=== PATIENT | male | born 1950 | race Two or more races ===

== ENCOUNTER 2020-02-17 13:08 | Outpatient (REF) | payer OTHER, SELFPAY ==
[2020-02-18 11:24] LABS: COVID-19 RT-PCR UVMMC Result Negative (Negative)
== END 2020-02-17 13:28 ==
LOC: NCHCN 13:08
PROVIDERS: PCP Physician Assistant; Visit Provider Physician Assistant
DX: J06.9 Acute upper respiratory infection, unspecified (principal)
CPT/HCPCS: U0003

== ENCOUNTER 2024-02-23 18:08 | Outpatient (REF) | payer OTHER, SELFPAY ==
--- NOTE | 2024-02-23 11:20 | SKI_PTH ---
PATIENT: Amanuel Zimmer LOC: [facility] U#:[id number] AGE/SX: 73/M ROOM: RE02/23/[address]: Oumar Huang : 1950 BED: DIS: 02/23/2024 SPEC #: [id number] RECD: 02/26/24 13:19 STATUS: CLEOPATRA KOWALSKI #: [id number] ALISON: 02/23/24 11:[address]: Oumar Huang DEPT: Surgical Specimen RECD BY: Mary Sanchez Tissues: 1 - SKIN BIOPSY(SHAVE/PUNCH) Procedures: SKIN LEVEL 4 Comments: [id number]
[2024-02-23 14:50] LABS: HCT 50.2 % (40.0-50.0); HGB 16.6 g/dL (13.5-17.5); MCH 31.3 pg (27.0-33.0); MCHC 33.1 % (32.0-36.0); MCV 95 fL (80-95); Platelet Count 297 10^3/uL (130-400); RBC 5.31 10^6/uL (4.36-5.78); RDW 14.1 % (11.8-14.1); WBC 7.92 10^3/uL (4.4-10.8)
[2024-02-23 15:00] LABS: ALT 22 U/L (16-63); AST 19 U/L (15-37); Albumin 3.7 g/dL (3.4-5.0); Alkaline Phosphatase 66 U/L (46-116); Anion Gap 7.9 mmol/L (3-11); BUN 10 mg/dL (7-18); Bilirubin, Total 1.12 mg/dL (0.2-1.0); CO2 29.1 mmol/L (21.0-32.0); Calcium 9.1 mg/dL (8.5-10.1); Calculated LDL 83 mg/dL (<100); Chloride 105 mmol/L (98-107); Cholesterol 139 mg/dL (<200); Estimated GFR 78.98 (mL/min/1.73m2); Glucose 118 mg/dL (74-106); HDL Cholesterol 36 mg/dL (40-60); Potassium 4.3 mmol/L (3.5-5.1); Sodium 142 mmol/L (136-145); Total Protein 7.3 g/dL (6.4-8.2); Triglyceride 101 mg/dL (<150)
[2024-02-23 15:18] LABS: Hemoglobin A1C 6.2 % (<5.7)
== END 2024-02-23 18:09 | disposition home or self-care (01) ==
LOC: NCHCN 18:08
PROVIDERS: PCP Physician Assistant; Visit Provider Physician Assistant
DX: K21.9 Gastro-esophageal reflux disease without esophagitis; E11.9 Type 2 diabetes mellitus without complications; L82.1 Other seborrheic keratosis
CPT/HCPCS: 80053; 80061; 85027; 83036; 88305

== ENCOUNTER 2024-09-25 16:04 | Outpatient (REF) | payer OTHER, SELFPAY ==
[2024-09-25 19:17] LABS: HCT 47.3 % (40.0-50.0); HGB 15.6 g/dL (13.5-17.5); MCH 31.5 pg (27.0-33.0); MCV 95 fL (80-95); MPV 10.1 fL (8.0-11.0); Platelet Count 389 10^3/uL (130-400); RBC 4.96 10^6/uL (4.36-5.78); RDW 13.8 % (11.8-14.1); RDW-SD 48.2 fL
[2024-09-25 19:40] LABS: ALT 39 U/L (16-63); AST 26 U/L (15-37); Albumin 3.3 g/dL (3.4-5.0); Alkaline Phosphatase 66 U/L (46-116); Anion Gap 6.3 mmol/L (3-11); BUN 31 mg/dL (7-18); Bilirubin, Total 1.25 mg/dL (0.2-1.0); C-Reactive Protein 1.27 mg/dL (<or=0.5); CO2 30.7 mmol/L (21.0-32.0); CREATININE 1.3 mg/dL (0.70-1.30); Calcium 9.3 mg/dL (8.5-10.1); Chloride 107 mmol/L (98-107); Estimated GFR 57.29 (mL/min/1.73m2); Glucose 122 mg/dL (74-106); NT-proBNP 1064 pg/mL (<300); Potassium 4.6 mmol/L (3.5-5.1); Sodium 144 mmol/L (136-145); Total Protein 7.1 g/dL (6.4-8.2)
== END 2024-09-25 16:05 | disposition home or self-care (01) ==
LOC: NCHCN 16:04
PROVIDERS: PCP Physician Assistant; Visit Provider Physician Assistant
DX: R50.9 Fever, unspecified (principal); I50.9 Heart failure, unspecified
CPT/HCPCS: 80053; 85027; 83880; 86140

== ENCOUNTER 2024-10-09 16:12 | Outpatient (REF) | payer OTHER, SELFPAY ==
[2024-10-09 19:43] LABS: HCT 47.3 % (40.0-50.0); HGB 15.5 g/dL (13.5-17.5); MCH 31.1 pg (27.0-33.0); MCHC 32.8 % (32.0-36.0); MCV 95 fL (80-95); MPV 10.3 fL (8.0-11.0); Platelet Count 414 10^3/uL (130-400); RBC 4.99 10^6/uL (4.36-5.78); RDW 14.2 % (11.8-14.1); RDW-SD 49.1 fL; WBC 8.07 10^3/uL (4.4-10.8)
[2024-10-09 20:01] LABS: NT-proBNP 1308 pg/mL (<300)
== END 2024-10-09 16:13 | disposition home or self-care (01) ==
LOC: NCHCN 16:12
PROVIDERS: PCP Physician Assistant; Visit Provider Physician Assistant
DX: I42.2 Other hypertrophic cardiomyopathy (principal); E11.9 Type 2 diabetes mellitus without complications
CPT/HCPCS: 85027; 83036; 83880

== ENCOUNTER 2024-11-13 16:32 | Outpatient (REF) | payer OTHER, SELFPAY ==
[2024-11-13 20:16] LABS: NT-proBNP 2665 pg/mL (<300)
== END 2024-11-13 16:33 | disposition home or self-care (01) ==
LOC: NCHCN 16:32
PROVIDERS: PCP Physician Assistant; Visit Provider Physician Assistant
DX: I42.2 Other hypertrophic cardiomyopathy (principal)
CPT/HCPCS: 83880

== ENCOUNTER 2025-01-01 08:09 | Outpatient (CLI) | payer OTHER, SELFPAY ==
--- NOTE | 2025-01-01 08:00 | RT.EKG_ITS ---
APPROVED REPORT Exam: Resting ECG Reason for Exam: afib Patient Location: O HR:77 bpm ECG Measurements Heart Rate 77 AXIS LA [id number] P [id number] QRSd 136 QRS 96 QT 403 T 177 QTc 457 Conclusion Atrial fibrillation.. Right bundle branch block...QRSd>120, terminal axis(90,270) Diffuse nondiagnostic ST-T abnormalities Baseline wander in lead(s) I,V1,V3,V4,V5
[2025-01-01 20:53] LABS: Abs Immature Grans 0.05 10^3/uL (0.0-0.06); Absolute Basophil Count 0.08 10^3/uL (0.0-0.2); Absolute Eosinophil Count 0.03 10^3/uL (0.0-0.7); Absolute Monocyte Count 0.96 10^3/uL (0.1-0.8); Basophils % 0.6 %; Eosinophils % 0.2 %; HCT 54.4 % (40.0-50.0); HGB 17.7 g/dL (13.5-17.5); Immature Grans % 0.4 %; Lymphocytes % 13.5 %; MCH 30.8 pg (27.0-33.0); MCHC 32.5 % (32.0-36.0); MCV 95 fL (80-95); MPV 10.8 fL (8.0-11.0); Monocytes % 7.2 %; Neutrophils % 78.1 %; Platelet Count 357 10^3/uL (130-400); RBC 5.74 10^6/uL (4.36-5.78); RDW 14.6 % (11.8-14.1); RDW-SD 50.8 fL; WBC 13.38 10^3/uL (4.4-10.8)
[2025-01-01 20:54] LABS: Absolute Lymphocyte Count 1.81 10^3/uL (1.2-3.4); Absolute Neutrophil Count 10.45 10^3/uL (1.2-6.7)
[2025-01-01 21:09] LABS: Uric Acid 4.7 mg/dL (3.5-7.2)
== END 2025-01-01 08:10 | disposition home or self-care (01) ==
LOC: DI.CARD 08:10 → NCHCN 20:35
PROVIDERS: Registered Nurse; PCP Family Medicine; Visit Provider Family Medicine
DX: I47.20 Ventricular tachycardia, unspecified (principal); I48.91 Unspecified atrial fibrillation
CPT/HCPCS: 84550; 85025

== ENCOUNTER 2025-02-13 18:44 | Outpatient (REF) | payer OTHER, SELFPAY ==
--- NOTE | 2025-02-13 16:15 | SKI_PTH ---
PATIENT: Amanuel Zimmer [facility][id number] AGE/SX: 74/M ROOM: RE02/13/[address]: Oumar Huang : 1950 BED: DIS: 02/13/2025 SPEC #: [id number] RECD: 02/13/25 18:54 STATUS: CLEOPATRA REPrince #: [id number] ALISON: 02/13/25 16:[address]: Oumar Huang DEPT: Surgical Specimen RECD BY: Mary Sanchez Tissues: 1 - SKIN BIOPSY(SHAVE/PUNCH) Procedures: SKIN LEVEL 4 Comments: [id number]
== END 2025-02-13 18:45 | disposition home or self-care (01) ==
LOC: NCHCN 18:44
PROVIDERS: PCP Physician Assistant; Visit Provider Physician Assistant
DX: L81.9 Disorder of pigmentation, unspecified (principal); C44.319 Basal cell carcinoma of skin of other parts of face
CPT/HCPCS: 88305

== ENCOUNTER 2025-06-17 21:33 | Outpatient (REF) | payer OTHER, SELFPAY ==
[2025-06-17 19:29] LABS: HCT 55.4 % (40.0-50.0); HGB 18.7 g/dL (13.5-17.5); MCH 31.6 pg (27.0-33.0); MCHC 33.8 % (32.0-36.0); MCV 94 fL (80-95); MPV 11.0 fL (8.0-11.0); Platelet Count 299 10^3/uL (130-400); RBC 5.92 10^6/uL (4.36-5.78); RDW 14.3 % (11.8-14.1); RDW-SD 49.9 fL; WBC 8.10 10^3/uL (4.4-10.8)
[2025-06-17 20:11] LABS: Anion Gap 9.6 mmol/L (3-11); BUN 14 mg/dL (7-18); CO2 28.4 mmol/L (21.0-32.0); Calcium 9.5 mg/dL (8.5-10.1); Chloride 104 mmol/L (98-107); Estimated GFR 70.01 (mL/min/1.73m2); Glucose 96 mg/dL (74-106); NT-proBNP 1403 pg/mL (<300); Potassium 4.6 mmol/L (3.5-5.1); Sodium 142 mmol/L (136-145)
[2025-06-17 20:44] LABS: Hemoglobin A1C 6.0 % (<5.7)
== END 2025-06-17 21:34 | disposition home or self-care (01) ==
LOC: NCHCN 21:33
PROVIDERS: PCP Physician Assistant; Visit Provider Physician Assistant
DX: I10 Essential (primary) hypertension (principal); E11.9 Type 2 diabetes mellitus without complications; I48.91 Unspecified atrial fibrillation; I42.2 Other hypertrophic cardiomyopathy
CPT/HCPCS: 80048; 85027; 83036; 83880

== ENCOUNTER → 2025-07-09 02:12 | Outpatient (CLI) | payer OTHER, SELFPAY ==
--- NOTE | 2025-07-09 13:30 | DI.US_ITS ---
APPROVED REPORT EXAM: Comprehensive 2D, Doppler, and color-flow Echocardiogram Patient Location: Out-Patient Environmental Advisor: Colleen Esposito RDCS (AE) Indications: HOCM, Hypertrophic Cardiomyopathy Other Information Study Quality: Adequate Conclusion Normal left ventricular chamber size. Mild asymmetric septal hypertrophy. EF is 45 to 50%. There are no segmental wall motion abnormalities. Patient is in atrial fibrillation with [id number] variation Normal right ventricular size and function Severely dilated left atrium. Moderately dilated right atrium Device lead noted in the right heart There are no structural valvular abnormalities Trace aortic regurgitation. Mild mitral and tricuspid regurgitation Ascending aorta measures 3.72 cm Wall motion Left Ventricle The left ventricle is normal size. Left ventricular systolic function is mildly decreased. Echo findings are consistent with hypertrophic cardiomyopathy. There is global hypokinesis of the left ventricle. There is no ventricular septal defect visualized. LVEF is 45-50%. Right Ventricle Right ventricle is grossly normal in size. The right ventricular systolic function is normal. Device lead is present in the right ventricle. Atria Left atrium is severely dilated. Right atrium is moderately dilated. The interatrial septum is intact with no evidence for an atrial septal defect. Aortic Valve The aortic valve is normal in structure. Aortic valve is trileaflet. There is no aortic valvular stenosis. Trace aortic regurgitation. Mitral Valve The mitral valve is normal in structure. No evidence of mitral valve stenosis. Mild mitral regurgitation. Tricuspid Valve The tricuspid valve is normal in structure. There is no tricuspid valve stenosis. Mild tricuspid regurgitation. The RVSP is 39.6_ mmHg. Pulmonic Valve The pulmonary valve is normal in structure. There is no pulmonic valvular stenosis. Trace pulmonic regurgitation. Great Vessels The aortic root is normal in size. The ascending aorta is mildly dilated. Aortic arch is normal in caliber. The IVC collapses <50% with inspiration. Pericardium There is no pericardial effusion. 2D Dimensions IVSD d PLAX 1.50 cm M: 0.6-1.2 Ao Root d 3.18 cm M: 3.1 - 3.7 LVPW d PLAX 1.21 cm M: 0.6 - 1.2 Ao Asc Diam d 3.72 cm M: 2.6 - 3.4 LVID d PLAX 5.22 cm M: 4.2 - 5.8 LVDs 4.03 cm M: 2.5 - 4.0 LV EF Teichholz 45.6 % FS 22.85 % LV EDV (Teich) 130.5 mL LV ESV (Teich) 71.1 mL M-Mode TAPSE 1.35 cm (M/F) >1.7 Auto EF LV EDV A4C 151.3 mL LV EDV A2C 153.7 mL LV EDV BP 153.4 mL LV ESV A4C 90.3 mL LV ESV A2C 93.0 mL LV ESV BP 91.1 mL LVEF(%) A4C 40.3 % LVEF(%) A2C 39.5 % LVEF(%) BP 40.6 % LV SV A4C 61.0 ml LV SV A2C 60.8 ml LV SV BP 62.3 ml LV CO A4C 3.4 L/min LV CO A2C 3.2 L/min LV CO BP 3.3 L/min HR A4C 55.30 BPM HR A2C 52.25 BPM LV EDV Index (BP) LA Volume LA Length A4C 6.0 cm LA Length A2C 6.6 cm LA Area A4C s 28.70 cm2 LA Area A2C s 29.55 cm2 LA Vol A4C A-L 117.06 mL LA Vol A2C A-L 111.47 mL LA Vol Biplane A-L 120.5 mL LA Vol/BSA A4C A-L LA Vol/BSA A2C A-L LA Vol/BSA BP A-L 55.8 mL/m2 LA Vol A4C MOD 107.0 mL LA Vol A2C MOD 104.7 mL LA Vol BP MOD 111.4 mL RA Volume RA Area A4C 23.8 cm2 RA ESV A4C (A-L) 77.8mL RA Vol/BSA A4C A-L RA Length A4C 6.2 cm RA ESV A4C (MOD) 74.2mL LV Diastology MV E' lateral 0.093 (>0.1 m/s) MV E Vmax 0.63 (0.4-1.3 m/s) MV E/E' LAT 6.75 (<14) Aortic Valve AoV Vmax 0.85 m/s LVOT Vmax 0.74 m/s AoV Peak Grad 2.9 mmHg LVOT Peak Grad 2.2 mmHg AoV Area (Vmax) 2.70 cm2 LVOT VTI 0.177 m AoV VTI 0.193 m LVOT Mean Grad 1.2 mmHg AoV Mean Len. 0.65 m/s LVOT SV 54.97 mL AoV Mean Grad 1.8 mmHg LVOT Diam s 1.95 cm AoV Area (VTI) 2.86 cm2 AV Regurg Peak Gr. 2.90 mmHg Velocity Ratio 0.87 Mitral Valve MV DT 218 (160-240 msec) MV Vmax TIPS 0.70 m/s MV Mean Grad 0.3 (<2mmHg) MV VTI 0.190 m Pulmonary Valve PV Vmax 0.95 (0.5-1.5 m/s) RVOT Vmax 0.79 m/s PV Peak Grad 3.6 mmHg RVOT Peak Gr. 2.5 mmHg PV Mean Len 0.60 m/s RVOT VTI 0.152 m PV Mean Grad 1.7 mmHg RVOT Mean Gr. 1.2 mmHg Tricuspid Valve RA Pressure 3.00 mmHg TR Vmax 3.02 m/s TV S' 0.10 m/s TR Peak Grad 36.5 mmHg RVSP (TR) 39.6 mmHg
== END ==
LOC: DI 02:12
PROVIDERS: PCP Physician Assistant; Visit Provider Registered Nurse
DX: I42.2 Other hypertrophic cardiomyopathy (principal); I08.1 Rheumatic disorders of both mitral and tricuspid valves
CPT/HCPCS: 93306